=== PATIENT | female | born 1990 | race Caucasian/White ===

== ENCOUNTER 2022-01-02 00:20 | Emergency (ER) | payer SELFPAY ==
[2022-01-02] MEDS ORDERED: hydrOXYzine 25 MG TAB ONE (00:47)
== END 2022-01-02 01:25 | disposition home or self-care (01) ==
LOC: BURERS 00:20
DX: F41.9 Anxiety disorder, unspecified (principal); R06.4 Hyperventilation; F19.10 Other psychoactive substance abuse, uncomplicated; F17.200 Nicotine dependence, unspecified, uncomplicated
CPT/HCPCS: 71045; 74176; 93005